=== PATIENT | female | born 1980 | race Caucasian/White ===

== ENCOUNTER → 2016-05-05 | Outpatient (CLI) | payer OTHER ==
--- NOTE | 2016-05-05 10:58 | REP ---
LEFT KNEE SERIES: Five views. HISTORY: Pain in both knees. FINDINGS: Five views of the left knee demonstrate overall normal mineralization. A normal fabella is seen. No evidence of fracture, subluxation or arthropathy. No joint space narrowing is seen. IMPRESSION: Negative views of the left knee. Signed by Dylan Groves MD 05/05/2016 01:09 P
--- NOTE | 2016-05-05 10:59 | REP ---
Right knee series: Five views. History: Pain in both knees. Findings: Five views of the right knee demonstrate normal bones, joints, and soft tissues. No evidence of arthropathy or erosive change. Impression: Negative right knee series. Signed by Dylan Groves MD 05/05/2016 01:08 P
== END ==
LOC: M LRY 08:34
PROVIDERS: ATTEND Family Medicine
DX: M25.561 Pain in right knee (principal); M25.562 Pain in left knee

== ENCOUNTER → 2016-06-01 | Outpatient (REF) | payer OTHER | LOC: M SFHCLERA 13:35 | PROVIDERS: ATTEND Family Medicine | DX: N30.00 Acute cystitis without hematuria (principal) ==

== ENCOUNTER → 2017-01-05 | Outpatient (CLI) | payer OTHER ==
--- NOTE | 2017-01-05 11:31 | REP ---
Clinical: Pain. Technique: AP, lateral, bilateral oblique views left wrist . Findings: The carpal bones, surrounding osseous structures, soft tissues, and joint spaces are normal. There is no evidence for acute fracture or dislocation. No subcutaneous emphysema or radiodense foreign body. Impression: Normal wrist series. No acute fracture or dislocation Signed by Ramiro Duran MD 01/05/2017 11:22 A
== END ==
LOC: M LRY 09:17
PROVIDERS: ATTEND Family Medicine
DX: M25.532 Pain in left wrist (principal)
CPT/HCPCS: 73110; G0463